=== PATIENT | female | born 2000 | race Caucasian/White ===

== ENCOUNTER 2024-07-02 06:31 | Outpatient (REF) | payer OTHER, SELFPAY ==
--- NOTE | ~2024-07-02 | US_ITS ---
CLINICAL HISTORY: CHECK IUD PLACEMENT, PELVIC PAIN Transabdominal and transvaginal pelvic ultrasound Comparison: None Findings: Uterus 8.3 x 3.1 x 4.2 cm. Endometrium 3 mm. IUD in good position. No significant free fluid. Right ovary 4.2 x 1.9 x 2.0 cm. Left ovary 4.2 x 2.3 x 1.8 cm. No significant focal abnormality. Impression: No acute process This document has been electronically signed by: Monster Menard MD on 07/02/2024 22:37:05
--- OUTSIDE RECORDS SUMMARY | 2024-07-02 06:34 | XMS_ITS | Encounter Summary ---
Author Organization [facility] Address [address] [place] [address] Phone Care Team Providers Care Portfolio Consultant Name Role Phone Sumaya Chauhan MD Primary Care Provider [phone] Janeen Bennett MD Primary Care Provider [phone] Encounter Details Date Type Department Care Team (Latest Contact Info) Description 03/13/2018 Transcribe Orders [facility] [address] [place] [address] Sumaya Chauhan MD [address] [place] [address] [email or web address] Altered mental status, unspecified altered mental status type (Primary Dx); Visual hallucination; Acute stress reaction Social History Tobacco Use Types Packs/Day Years Used Date Smoking Tobacco: Never Assessed Comments Unknown Sex and Gender Information Value Date Recorded Sex Assigned at Not on file Legal Sex Female 4:17 PM EDT Gender Identity Not on file Sexual Orientation Not on file documented as of this encounter Plan of Treatment Not on file documented as of this encounter Results * CBC (03/13/2018 9:41 AM EST) WBC 6.84 4.5 - 13.5 K/uL [facility] RBC 4.54 4.1 - 5.1 M/uL [facility] HGB 13.9 12.0 - 16.0 g/dL [facility] HCT 40.9 36 - 46 % [facility] PLT 229 135 - 400 K/uL [facility] MCV 90.1 78 - 102 fL [facility] MCH 30.6 27 - 34 pg [facility] MCHC 34.0 31.5 - 36.5 g/dL [facility] RDW 12.0 11.9 - 14.8 % [facility] MPV 10.4 9.6 - 12 fl [facility] NRBC 0.00 0 /100 WBCs [facility] Blood 03/13/2018 9:41 AM EST 03/13/2018 10:07 AM EST us Sumaya Chauhan MD LAB BLOOD ORDERABLES Final Res ult Performing Organization Address [facility] Phone Number [facility] [address] [place] [address] * Free T4 (03/13/2018 9:41 AM EST) FREE T4 1.2 0.9 - 1.8 ng/dL [facility] Blood 03/13/2018 9:41 AM EST 03/13/2018 10:07 AM EST us Sumaya Chauhan MD LAB BLOOD ORDERABLES Final Res ult Performing Organization Address [facility] Phone Number [facility] [address] [place] [address] * TSH (03/13/2018 9:41 AM EST) TSH 1.87 0.55 - 4.78 uIU/mL [facility] Blood 03/13/2018 9:41 AM EST 03/13/2018 10:07 AM EST Sumaya Chauhan MD LAB BLOOD ORDERABLES Final Res ult Performing Organization Address [facility] de Phone Number [facility] [address] [place] [address] * (ABNORMAL) Basic serum toxicology (03/13/2018 9:41 AM EST) ACETAMINOPHEN <5.0(L) 10.0 - 20.0 ug/mL [facility] Comment: Normal Half-Life: 2-3 hours ? Toxic Concentration: >150 ug/ml at 4 ?hours post ingestion Toxic Half-Life: Half-life value ? exceeding 4 hours ? Significant liver damage is also ? considered likely if drug levels are ? greater than 150 ug/mL at 4 hours after ingestion or 50 ug/mL after 12 hours. ?? SALICYLATES <1.0(L) 15.0 - 30.0 mg/dL [facility] ETHANOL <10 <10 mg/dL [facility] Blood 03/13/2018 9:41 AM EST 03/13/2018 10:07 AM EST us Sumaya Chauhan MD LAB BLOOD ORDERABLES Final Res ult Performing Organization Address City/State/[facility] Co de Phone Number [facility] [address] [place] [address] * Toxicology screen, urine (03/13/2018 9:41 AM EST) URINE BENZODIAZEPINE Negative Negative [facility] Comment: CUT OFF VALUE FOR POSITIVE RESULTS: 200 NG/ML Unconfirmed results, FOR MEDICAL SCREENING PURPOSES ONLY. URINE COCAINE METAB Negative Negative [facility] Comment: Cut off value for positive results: 300 ng/mL Unconfirmed results, FOR MEDICAL SCREENING PURPOSES ONLY. URINE AMPHETAMINES Negative Negative [facility] Comment: CUT OFF VALUE FOR POSITIVE RESULTS: 1000 NG/ML Unconfirmed results, FOR MEDICAL SCREENING PURPOSES ONLY. URINE CANNABINOIDS Negative Negative [facility] Comment: CUT OFF VALUE FOR POSITIVE RESULTS: 50 NG/ML Unconfirmed results, FOR MEDICAL SCREENING PURPOSES ONLY. URINE OPIATES Negative Negative [facility] Comment: Cut off value for positive results: 300 ng/mL Unconfirmed results, FOR MEDICAL SCREENING PURPOSES ONLY. URINE BARBITURATES Negative Negative [facility] Comment: CUT OFF VALUE FOR POSITIVE RESULTS: 200 NG/ML Unconfirmed results, FOR MEDICAL SCREENING PURPOSES ONLY. URINE OXYCODONE Negative Negative [facility] Comment: CUT OFF VALUE FOR POSITIVE RESULTS: 100 NG/ML Unconfirmed results, FOR MEDICAL SCREENING PURPOSES ONLY. UR TRICYCLICS Negative Negative [facility] Comment: Cut off value for positive results: 300 ng/mL Unconfirmed results, FOR MEDICAL SCREENING PURPOSES ONLY. URINE METHADONE Negative Negative [facility] Comment: Cut off value for positive results: 300 ng/mL Unconfirmed results, FOR MEDICAL SCREENING PURPOSES ONLY. URINE BUPRENORPHINE Negative Negative [facility] Comment: Cut-off concentration for Urine Buprenorphine is 5 ng/mL. Unconfirmed results, FOR MEDICAL SCREENING PURPOSES ONLY. Urine (Urine) 03/13/2018 9:4 1 AM EST 03/13/2018 10:07 AM EST Sumaya Chauhan MD URINE ORDERABLES Final Result [facility] [address] [place] [id number] * Basic metabolic panel (03/13/2018 9:41 AM EST) SODIUM 142 136 - 145 mmol/L [facility] CHLORIDE 104 95 - 106 mmol/L [facility] POTASSIUM 5.2 3.5 - 5.2 mmol/L [facility] CO2 27 20 - 31 mmol/L [facility] BUN 16 9 - 23 mg/dL [facility] CREATININE 0.86 0.50 - 1.30 mg/dL [facility] GLUCOSE 83 74 - 106 mg/dL [facility] CALCIUM 9.9 8.7 - 10.4 mg/dL [facility] EGFR Estimated GFR not calculated for patients <18 years old. >60 mL/min/1. 73m2 [facility] ANION GAP 11 3 - 17 mmol/L [facility] Blood 03/13/2018 9:41 AM EST 03/13/2018 10:07 AM EST us Sumaya Chauhan MD LAB BLOOD ORDERABLES Final Res ult [facility] [address] [place] [address] documented in this encounter Visit Diagnoses Diagnosis Altered mental status, unspecified altered mental status type- Primary Visual hallucination Psychophysical visual disturbances Acute stress reaction Unspecified acute reaction to stress documented in this encounter Care Teams Portfolio Consultant Relationship Specialty Start Date End Date Sumaya Chauhan MD [address] [place] [address] [email or web address] PCP - General Pediatrics 05/02/17 02/15/19 Jnaeen Bennett MD [address] [place] [phone] [email or web address] PCP - General Family Medicine 04/08/24 documented as of this encounter Additional Source Comments The information contained in this document represents components of the legal health record. It is not the complete legal health record.[facility]
--- OUTSIDE RECORDS SUMMARY | 2024-07-02 06:34 | XMS_ITS | Clinical Summary ---
Author Organization [facility] Address [address] [email or web address] [facility] [address] [place] [address] Phone Care Team Providers Care Vice President Corporate Communications Name Role Phone Janeen Bennett MD Primary Care Provider [phone] Encounters Date Type Department Care Team Description 04/12/2024 4:56 PM EST - 04/12/2024 11:59 PM EST Hospital Encounter [address] [place] [address] Janeen Bennett MD Discharge Disposition: Home or Self Care 04/05/2024 Transcribe Orders Virtual Department [address] [place] [address] Janeen Bennett MD Encounter for removal of intrauterine contraceptive device (IUD) (Primary Dx) from Last 3 Months Social History Tobacco Use Types Packs/Day Years Used Date Smoking Tobacco: Never Assessed Education Answer Date Recorded Are you interested in more education? Not on phil e 06/10/2022 Are you concerned about learning? Not on file 06/10/2022 No 06/10/2022 No 06/10/2022 Digital Access Answer Date Recorded No 07/09/2022 No 07/09/2022 No 07/09/2022 Reliable internet access at home? Not on file 07/09/2022 Device with a working camera? Not on file Comments Unknown Sex and Gender Information Value Date Recorded Sex Assigned at Not on file Legal Sex Female 4:17 PM EDT Gender Identity Not on file Sexual Orientation Not on file Plan of Treatment Health Maintenance Due Date Last Done Comments Adult Td,Tdap Booster 2002 MMR VACCINES (1 of 1 - Standard series) 06/30/2003 COMBINED DTaP,Tdap,Td (1 - Tdap) 2009 DEPRESSION SCREENING 2014 SMOKING Hx and SMOKELESS TOBACCO SCREENING 06/30/2015 HPV VACCINES (1 - 3-dose series) 2017 CHLAMYDIA SCREENING 2018 ADOLESCENT UNIVERSAL LIPID SCREENING 06/30/2019 HEPATITIS B SCREENING 2020 HEPATITIS C SCREENING 2020 HIV ONE-TIME SCREENING (18-6 5 YEARS) 2020 HEPATITIS B VACCINES (1 of 3 - 19+ 3-dose series) 2021 PAP SMEAR 06/30/2023 INFLUENZA VACCINE (#1) 2023 11/06/2019 COVID-19 VACCINE (3 - 2023-2 5 season) 2023 05/28/2020, 05/07/2020 HEPATITIS A VACCINES Aged Out No long er eligible based on patient's age to complete this topic HIB VACCINES Aged Out No longer eligi ble based on patient's age to complete this topic MENINGOCOCCAL VACCINES (ACWY) Aged Out No longer eligible based on patient's age to complete this topic PNEUMOCOCCAL VACCINES (0-49 years) Aged Out No longer eligible b ased on patient's age to complete this topic Medical Devices Not on file Procedures Procedure Name Priority Date/Time Associated Diagnosis Comments US PELVIS TRANSABDOMINAL PLUS TRANSVAGINAL Routine 04/12/2024 5:31 PM EST Encounter for removal of intrauterine contraceptive device (IUD) from Last 3 Months Results * US PELVIS TRANSABDOMINAL PLUS TRANSVAGINAL (04/12/2024 5:31 PM EST) Anatomical Region Laterality Modality Pelvis, Uterus/Adnexa Ultrasound 04/13/2024 2:30 PM EST Impressions 04/13/2024 2:33 PM EST 1. ??No intrauterine device is visualized. Narrative 04/13/2024 2:33 PM EST US PELVIS TRANSABDOMINAL AND TRANSVAGINAL Referring clinician's provided indication for this examination in [facility]: Outside Radiology Order; iud check TECHNIQUE: Pelvic Ultrasound Transabdominal performed for global imaging of the pelvis. Pelvic Ultrasound Transvaginal performed for detailed imaging of the endometrium and/or adnexa. COMPARISON: US PELVIS TRANSABDOMINAL ONLY FINDINGS: Uterus: Size: ??7.0 x 5.4 x 3.0 cm. Orientation: anteverted ??Myometrium: Normal. Endometrium: Normal. No intrauterine device is visualized sonographically. Thickness: 3 mm. Right adnexa: Ovary: Normal. Left adnexa: Ovary: Normal. Free fluid: No significant free fluid. Procedure Note Olamide Sotomayor MD - 04/13/2024 US PELVIS TRANSABDOMINAL AND TRANSVAGINAL Referring clinician's provided indication for this examination in [facility]:Outside Radiology Order; iud check TECHNIQUE: Pelvic Ultrasound Transabdominal performed for global imagingof the pelvis. Pelvic Ultrasound Transvaginal performed for detailedimaging of the endometrium and/or adnexa. COMPARISON: US PELVIS TRANSABDOMINAL ONLY FINDINGS: Uterus: Size: 7.0 x 5.4 x 3.0 cm. Orientation: anteverted Myometrium: Normal. Endometrium: Normal. No intrauterine device is visualizedsonographically. Thickness: 3 mm. Right adnexa: Ovary: Normal. Left adnexa: Ovary: Normal. Free fluid: No significant free fluid. IMPRESSION: 1. No intrauterine device is visualized. Janeen Bennett MD [facility] US PELVIS Final Result from Last 3 Months Insurance [facility] [place] For Your Imagination [place] [facility] For Your Imagination [place] [facility] For Your Imagination [place] [facility] For Your Imagination [place] [facility] For Your [employer] [place] Care Teams Vice President Corporate Communications Relationship Specialty Start Date End Date Janeen Bennett MD [address] [place] [phone] [email or web address] PCP - General Family Medicine 04/08/24 Additional Source Comments The information contained in this document represents components of the legal health record. It is not the complete legal health record.[facility]
--- OUTSIDE RECORDS SUMMARY | 2024-07-02 06:34 | XMS_ITS | Clinical Summary ---
Author Organization [facility] [employer] Address [address] [facility] [employer] [place] [address] Care Team Providers Care Media Marketing Coordinator Name Role Phone Sumaya Chauhan MD Primary Care Provider Allergies No known active allergies Medications No known medications Immunizations Name Administration Dates Next Due Bexsero Prefilled Syringe 10/04/2020 Flucelvax Trivalent PFS IM; Without Preservative (18+ mos) 10/04/2020,11/06/2019,03/01/2017 Typhim Vi Single-dose Syringe 02/25/2023 Social History Tobacco Use Types Packs/Day Years Used Date Smoking Tobacco: Never Smokeless Tobacco: Never Comments No Sex and Gender Information Value Date Recorded Sex Assigned at Not on file Legal Sex Female 5:47 PM EST Gender Identity Not on file Sexual Orientation Not on file Last Filed Vital Signs Vital Sign Reading Time Taken Comments Blood Pressure 110/70 11/06/2019 4:59 PM EDT Pulse 70 11/06/2019 4:59 PM EDT Temperature 37.6 ??C (99.7 ??F) 11/06/2019 4:59 PM ED T Respiratory Rate 14 11/06/2019 4:59 PM EDT Oxygen Saturation 98% 11/06/2019 4:59 PM EDT Inhaled Oxygen Concentration - - Weight 56.2 kg (124 lb) 11/06/2019 4:59 PM EDT Height 160 cm (5' 3 ) 11/06/2019 4:59 PM EDT Body Mass Index 21.97 11/06/2019 4:59 PM EDT Plan of Treatment Health Maintenance Due Date Last Done Comments Depression: Screening Annual ly using PHQ-2/9 in Adults 18 yrs or above (or HM Modifier)([facility]) 2020 Hepatitis C Virus Infection in Adolescents and Adults: Screening (or Modifier) ([facility]) 2020 SDOH Screening Reminder: Annually for all adults ([facility]) 2020 Tobacco Smoking Cessation: i n Adults excluding Women: Behavioral and Pharmacotherapy Interventions ([facility]) 2020 DTaP/Tdap/Td Vaccines ([facility]) (1 - Tdap) 2021 Lipid Screening: Once for Wo men aged 20 to 45 yrs ([facility]) 2022 Cervical Cancer Screenin-65 yrs of age (or Modifier) 06/30/2023 Cervical Cancer Screening: P ap every 3 yrs pts age 21-65 06/30/2023 Cervical Cancer: Pap Screeni ng with Modifier timing ([facility]) 06/30/2023 Cervical Cancer: hrHPV alone or with cotesting Pap for Pts 30-65yrs screening every 5yrs ([facility]) 06/30/2023 COVID-19 Vaccine Screening: Initial Series and Booster Status ([facility]) (2023- season) 2023 Flu Vaccination: Yearly for ages 18mos through 64 years (or Modifier)([facility]) 09/13/2024 10/04/2020, 11/06/2019, 03/01/2017 Zoster/Shingles Vaccine Seri es Screening: Adults aged 18+ yrs (or HM Modifiers)([facility]) (1 of 2) 2052 Pneumococcal Vaccination Screening: Pts 0-19 & 19-49 yrs of age ([facility]) Aged Out No longer eligible based on patient's age to complete this topic Medical Devices Not on file Insurance Care Teams Media Marketing Coordinator Relationship Specialty Start Date End Date Sumaya Chauhan MD [address] [place] [phone] PCP - General Pediatrics 02/25/23
--- OUTSIDE RECORDS SUMMARY | 2024-07-02 06:34 | XMS_ITS | Encounter Summary ---
Author Organization [facility] Address [address] [place] [address] Phone Care Team Providers Care Automotive Technology Instructor Name Role Phone Sumaya Chauhan MD Primary Care Provider [phone] Janeen Bennett MD Primary Care Provider [phone] Encounter Details Date Type Department Care Team (Late st Contact Info) Description 05/02/2017 Ancillary Orders [facility] Central Scheduling [address] [place] [address] Aarti Saunders MD [address] [place] [address] [address] [place] [address] [email or web address] Generalized abdominal pain Social History Tobacco Use Types Packs/Day Years Used Date Smoking Tobacco: Never Assessed Comments Unknown Sex and Gender Information Value Date Recorded Sex Assigned at Not on file Legal Sex Female 4:17 PM EDT Gender Identity Not on file Sexual Orientation Not on file documented as of this encounter Plan of Treatment Not on file documented as of this encounter Results * US PELVIS TRANSABDOMINAL ONLY (05/11/2017 3:24 PM EDT) Anatomical Region Laterality Modality Pelvis, Uterus/Adnexa Ultrasound Narrative 05/11/2017 4:00 PM EDT EXAM INFORMATION LMP: ??05/03/2017 INDICATIONS FOR SONOGRAPHY Pelvic pain UTERUS Visualized: ??well Appears: ??Normal in size and texture Length (cm): ??6.88 Width (cm): ??4.61 Height (cm): ??2.36 Volume (cc): ??39.15 Endometrium: ??Thin Endometrium Thickness (mm): ??2 Fibroids: ??None Fibroids Location: Fibroids Appearance: LEFT OVARY Length (cm): ??3.04 Height (cm): ??1.53 Width (cm): ??1.81 Volume (cc): ??4.4 Size: ??appears normal in size and echotexture. RIGHT OVARY Length (cm): ??2.54 Height (cm): ??1.94 Width (cm): ??2.35 Volume (cc): ??6.06 Size: ??appears normal in size and echotexture. ADNEXA Left Appears: ??Normal Right Appears: ??Normal COMMENTS Introductory Information: Transabdominal sonography was performed. ?? There are no prior studies for comparison. ?? [place] A small amount of anechoic fluid is visible. ?? Additional Comments: There is no adnexal mass, free fluid, or hydronephrosis. ?? IMPRESSION: Normal pelvic ultrasound, with a normal appearance of the uterus and ovaries. No adnexal mass or fibroid identified. Normal appearance of the endometrial lining. ?? Emergency Operator: ??Francesca Ramirez [facility] Procedure Note Sami Mcclain MD - 05/11/2017 EXAM INFORMATION LMP: 05/03/2017 INDICATIONS FOR SONOGRAPHY Pelvic pain UTERUS Visualized: well Appears: Normal in size and texture Length (cm): 6.88 Width (cm): 4.61 Height (cm): 2.36 Volume (cc): 39.15 Endometrium: Thin Endometrium Thickness (mm): 2 Fibroids: None Fibroids Location: Fibroids Appearance: LEFT OVARY Length (cm): 3.04 Height (cm): 1.53 Width (cm): 1.81 Volume (cc): 4.4 Size: appears normal in size and echotexture. RIGHT OVARY Length (cm): 2.54 Height (cm): 1.94 Width (cm): 2.35 Volume (cc): 6.06 Size: appears normal in size and echotexture. ADNEXA Left Appears: Normal Right Appears: Normal COMMENTS Introductory Information: Transabdominal sonography was performed. There are no prior studies for comparison. [place] A small amount of anechoic fluid is visible. Additional Comments: There is no adnexal mass, free fluid, or hydronephrosis. IMPRESSION: Normal pelvic ultrasound, with a normal appearance of the uterus andovaries. No adnexal mass or fibroid identified. Normal appearance of theendometrial lining. Emergency Operator: Francesca Ramirez RDMS [facility] Lola Saunders MD IMG US PELVIS Final Result documented in this encounter Visit Diagnoses Diagnosis Generalized abdominal pain Abdominal pain, generalized Generalized abdominal pain Abdominal pain, generalized documented in this encounter Care Teams Automotive Technology Instructor Relationship Specialty Start Date End Date Sumaya Chauhan MD [address] [place] [phone] [email or web address] PCP - General Pediatrics 05/02/17 02/15/19 Janeen Bennett MD [address] [place] [phone] [email or web address] PCP - General Family Medicine 04/08/24 documented as of this encounter Additional Source Comments The information contained in this document represents components of the legal health record. It is not the complete legal health record.[facility]
--- OUTSIDE RECORDS SUMMARY | 2024-07-02 06:34 | XMS_ITS | Encounter Summary ---
Author Organization [facility] Address [address] [place] [phone] Phone Care Team Providers Care Broke Handler Name Role Phone Janeen Bennett MD Primary Care Provider [phone] Encounter Details Date Type Department Care Team (Late st Contact Info) Description 04/05/2024 Transcribe Orders Virtual Department [address] [place] [address] Janeen Bennett MD [address] [place] [phone] [email or web address] Encounter for removal of intrauterine contraceptive device (IUD) (Primary Dx) Social History Tobacco Use Types Packs/Day Years [...] this encounter Results * US PELVIS TRANSABDOMINAL PLUS TRANSVAGINAL (04/12/2024 5:31 PM EST) Anatomical Region Laterality Modality Pelvis, Uterus/Adnexa Ultrasound 04/13/2024 2:30 PM EST Impressions 04/13/2024 2:33 PM EST 1. ??No intrauterine device is visualized. Narrative 04/13/2024 2:33 PM EST US PELVIS TRANSABDOMINAL AND TRANSVAGINAL Referring clinician's provided indication for this examination in [facility]: Outside Radiology Order; iud check TECHNIQUE: Pelvic [...] clinician's provided indication for this examination in Epic:Outside Radiology Order; iud check TECHNIQUE: Pelvic Ultrasound [...] IMPRESSION: 1. No intrauterine device is visualized. us Janeen Bennett MD IMG US PELVIS Final Result documented in this encounter Visit Diagnoses Diagnosis Encounter for removal of intrauterine contraceptive device (IUD)- Primary Encounter for removal of intrauterine contraceptive device (IUD) documented in this encounter Care Teams Broke Handler Relationship Specialty Start Date End Date Janeen Bennett MD [address] [place] [phone] [email or web address] PCP - General Family Medicine 04/08/24 documented as of this encounter Additional Source Comments The information contained in this document represents components of the legal health record. It is not the complete legal health record.[facility]
== END 2024-07-02 06:32 | disposition home or self-care (01) ==
LOC: HO.UMASIMG 06:31
PROVIDERS: Visit Provider Family Medicine
DX: Z30.431 Encounter for routine checking of intrauterine contraceptive device (principal); R10.2 Pelvic and perineal pain
CPT/HCPCS: 76830; 76856

== ENCOUNTER → 2024-07-02 09:00 | Outpatient (BNV) | payer OTHER, SELFPAY | PROVIDERS: Visit Provider Radiology Diagnostic Radiology | DX: R10.2 Pelvic and perineal pain (principal); Z30.431 Encounter for routine checking of intrauterine contraceptive device | CPT/HCPCS: 76830; 76856 ==